=== PATIENT | female | born 1980 | race Caucasian/White ===

== ENCOUNTER → 2024-06-26 19:20 | Outpatient (REF) | payer OTHER, SELFPAY | LOC: WDC 19:20 | PROVIDERS: ATTENDING PHYSICIAN Obstetrics & Gynecology Gynecology; FAMILY PHYSICIAN Internal Medicine | DX: Z12.31 Encounter for screening mammogram for malignant neoplasm of breast (principal) | CPT/HCPCS: 77063; 77067 ==